=== PATIENT | male | born 1975 | race Caucasian/White ===

== ENCOUNTER 2019-10-23 19:00 | Inpatient (IN) | payer OTHER ==
[~2019-10-23] VITALS: Ht 167.6 cm; Wt 124.7 kg
[2019-10-23 20:03] LABS: BASOPHILS 0.2 % (0-2); EOSINOPHILS 0 % (0-7); HEMATOCRIT 41.5 % (42.0-54.0); HEMOGLOBIN 13.4 g/dL (13.5-17.5); IMMATURE GRANULOCYTES 0.4 % (0-5); MCH 27.7 pg (26.0-34.0); MCHC 32.3 g/dL (31.0-37.0); MCV 85.9 fL (80.0-100.0); MEAN PLATELET VOLUME 9.1 fL (7.4-10.4); MONOCYTES 4.4 % (2-11); PLATELET COUNT 173 10x3/uL (130-400); RBC 4.83 10x6/uL (4.20-6.10); RDW 14.3 % (11.5-14.5); WBC 5.5 10x3/uL (4.8-10.8)
[2019-10-23 20:18] LABS: APTT 30.6 SECONDS (22.8-39.4); INR 0.92 (0.85-1.17); PROTIME 12.4 SECONDS (11.6-15.0)
[2019-10-23 20:19] LABS: D-DIMER-QUANTITATIVE 0.6 ug/mLFEU (0.20-0.54)
[2019-10-23 20:42] LABS: ALBUMIN 3.4 g/dL (3.4-5.0); ALKALINE PHOSPHATASE 83 U/L (30-120); ALT (SGPT) 49 U/L (10-68); BILIRUBIN - TOTAL 0.45 mg/dL (0.2-1.3); CALC OSMOLALITY 266 mosm/kg (275-300); CALCIUM 8.3 mg/dL (8.5-10.1); CARBON DIOXIDE 23.9 mmol/L (21.0-32.0); CHLORIDE - SERUM 99 mmol/L (98-107); CREATINE KINASE 699 UL (21-232); CREATININE - SERUM 1.1 mg/dL (0.6-1.3); GLUCOSE 104 mg/dL (74-106); PROTEIN - SERUM 7.6 g/dL (6.4-8.2); SODIUM 134 mmol/L (136-145); UREA NITROGEN 11 mg/dL (7-18); eGFR NON AFRICAN AMERICAN 78 mL/min (90-120)
[2019-10-23 20:43] LABS: POTASSIUM - SERUM 2.9 mmol/L (3.5-5.1); TROPONIN-I 0.406 ng/mL (0.000-0.060)
[2019-10-23 20:45] LABS: CKMB 1.7 U/L (0.0-3.6)
--- NOTE | 2019-10-23 21:20 | NUR ---
RETURNED FROM CT AT THIS TIME.
[2019-10-23 21:35] VITALS: BP 141/77
[2019-10-23 21:49] LABS: C-REACTIVE PROTEIN 6.9 mg/dL (0.0-0.9)
--- NOTE | 2019-10-23 22:00 | NUR ---
PT LAYING IN BED. RESPIRATIONS ARE EVEN AND UNLABORED. NO DISTRESS NOTED. COLOR WNL FOR RACE. VSS. COVID SWAB OBTAINED AND WALKED TO LAB FOR TESTING. WILL CONTINUE TO MONITOR PATIENT.
[2019-10-23 22:01] LABS: ERYTHROCYTE SEDIMENTATION RATE 21 mm/hr (0-15)
--- NOTE | 2019-10-23 22:04 | NUR ---
rocephin 1 gram stopped at this time.
[2019-10-23 22:42] VITALS: BP 142/78
--- NOTE | 2019-10-23 23:00 | NUR ---
WAS TOLD NOT TO GIVE PLAQUENIL UNTIL INGRID GARAY SPOKE WITH ER . WAS TOLD TO USE EKG FROM [employer] FOR NOW
[2019-10-23] MEDS ORDERED: CIPRO250 MG (23:03)
[2019-10-23] MEDS ORDERED: ROBITUSSIN DM 110 ML PO (23:03)
[2019-10-23 23:50] VITALS: BP 126/82
--- NOTE | 2019-10-23 23:58 | NUR ---
RECEIVED FROM ER, PT IS A&OX4, MEDS AND HISTORY COMPLETE, PLACED OS TELEMTRY, BES IS LOW, SRX2, CALL LIGHT IN REACH, WILL CONTINUE PLAN OF CARE
[2019-10-24 00:29] LABS: CKMB 1.8 U/L (0.0-3.6); CREATINE KINASE 683 UL (21-232); TROPONIN-I 0.389 ng/mL (0.000-0.060)
[2019-10-24 01:32] VITALS: BP 126/82; BMI 44.5
--- NOTE | 2019-10-24 02:47 | NUR ---
[facility] [facility] VERIFIED DOSE, WILL GIVE NOW
[2019-10-24 04:53] LABS: BASOPHILS 0.2 % (0-2); EOSINOPHILS 0.2 % (0-7); HEMOGLOBIN 12.4 g/dL (13.5-17.5); IMMATURE GRANULOCYTES 0.7 % (0-5); LYMPHOCYTES 24.9 % (15-50); MCH 27.5 pg (26.0-34.0); MCHC 31.8 g/dL (31.0-37.0); MCV 86.5 fL (80.0-100.0); MEAN PLATELET VOLUME 9.2 fL (7.4-10.4); MONOCYTES 5.7 % (2-11); NEUTROPHILS 68.3 % (40-80); PLATELET COUNT 150 10x3/uL (130-400); RBC 4.51 10x6/uL (4.20-6.10); RDW 14.5 % (11.5-14.5)
[2019-10-24 05:39] LABS: ALBUMIN 2.8 g/dL (3.4-5.0); ALKALINE PHOSPHATASE 74 U/L (30-120); ALT (SGPT) 41 U/L (10-68); BILIRUBIN - TOTAL 0.38 mg/dL (0.2-1.3); CALC OSMOLALITY 272 mosm/kg (275-300); CALCIUM 7.5 mg/dL (8.5-10.1); CARBON DIOXIDE 24.1 mmol/L (21.0-32.0); CHLORIDE - SERUM 104 mmol/L (98-107); CKMB 1.9 U/L (0.0-3.6); CREATINE KINASE 695 UL (21-232); CREATININE - SERUM 0.9 mg/dL (0.6-1.3); GLUCOSE 95 mg/dL (74-106); POTASSIUM - SERUM 3.2 mmol/L (3.5-5.1); PROTEIN - SERUM 6.7 g/dL (6.4-8.2); SODIUM 137 mmol/L (136-145); UREA NITROGEN 9 mg/dL (7-18); eGFR NON AFRICAN AMERICAN > 90 mL/min (90-120)
[2019-10-24 05:40] LABS: TROPONIN-I 0.383 ng/mL (0.000-0.060)
--- NOTE | 2019-10-24 07:00 | NUR ---
RECEIVED REPORT. ASSUMED CARE OF PATIENT. PATIENT REMAINS IN ISOLATION FOR SUSPECTED COVID. SR ON TELEMETRY, RATE 90.
[2019-10-24 08:54] VITALS: BP 123/79
--- NOTE | 2019-10-24 09:30 | NUR ---
PATIENT RESTING IN BED. LOUD, DRY HACKY COUGH NOTED. PATIENT DENIES SPUTUM PRODUCTION. CALL LIGHT WITHIN REACH. NO DISTRESS.
[2019-10-24 11:13] LABS: CREATINE KINASE 653 UL (21-232)
[2019-10-24 11:15] LABS: TROPONIN-I 0.396 ng/mL (0.000-0.060)
--- NOTE | 2019-10-24 12:34 | NUR ---
SITTING IN BED, CONSUMING NOON MEAL. NO DISTRESS. CALL LIGHT WITHIN REACH. PATIENT GIVEN THE BAG THAT HIS BROUGHT TO THE HOSPITAL WITH PERSONAL CLOTHES. DENIES NEEDS.
--- NOTE | 2019-10-24 13:00 | NUR ---
HERE FOR ROUNDS. PATIENT DESAT TO 89% WHILE AMBULATING TO RESTROOM. DR. ELLISON INCREASE OXYGEN TO 4 L/MIN AND O2 SAT UP TO 96%
[2019-10-24 13:03] VITALS: BP 117/72
[2019-10-24 14:46] VITALS: BP 143/79
--- NOTE | 2019-10-24 15:00 | NUR ---
20 GAUGE IV PLACED TO RIGHT WRIST X 1 STICK. GOOD BLOOD RETURN, EASY FLUSH. IV PLACED DUE LEFT AC CONTINUE TO ACCLUDE WHEN PT BENDS HIS ARM. IV TAPED, DATED AND SECURED. TOLERATED IV PLACEMENT WELL. IV FLUIDS NOW INFUSING VIA RIGHT WRIST.
--- NOTE | 2019-10-24 16:37 | NUR ---
CALLED PLACED TO ANSWERING SERVICE TO LYNN TORRES. CONCERNED THAT HE WAS NOT SEEN BY PRIMARY TODAY AND CALLED THE UNIT TO MAKE SURE THAT PRIMARY KNOWS THAT THIS PATIENT IS ON THEIR SERVICE. AWAITING CALL BACK FROM NOW TO MAKE SURE HE KNOWS PATIENT IS ON HIS SERVICE.
--- NOTE | 2019-10-24 17:07 | NUR ---
ASSISTED PATIENT TO RESTROOM AND BACK. PATIENT CONTINUES WITH DRY, HACKING COUGH. CALL LIGHT WITHIN REACH. PATIENT ATTEMPTING TO CONSUME PM MEAL AT THIS TIME.
--- NOTE | 2019-10-24 18:11 | NUR ---
MEDICATED FOR TEMP OF 100.5 AT THIS TIME. NO DISTRESS. IV FLUIDS INFUSING ORDERED.
[2019-10-24 20:06] VITALS: BP 149/72
--- NOTE | 2019-10-24 20:43 | NUR ---
RECEIVED UP IN BED WITH EYES CLOSED AND TV ON. EASILY AROUSED WITH VERBAL STIMULI. STATING NOT FEELING GOOD AND THAT HE FELT HOT. V/S'S CHECKED AND TEMP. AT 100.0. COOL WET CLOTHES GIVEN FOR FORHEAD AND NECK. ASKED HIM TO DRINK WATER FOR HIS TEMP. UNABLE TO GIVE ACETAMENOPHINE D/T GIVEN AT 1810. HAS A DRY HACKING COUGH AND SATES THAT SOMETIMES HE COUGHS UP A LITTLE SOMETHING. O2 @ 4 LITERS PER N/C WITH SAT IN LOW 90'S. ORIENTED X4. UP AD RADHA TO B/R. TELEMETRY IN PLACE. IV TO LT AC SL AND IV TO RT FA WITH NS AT 100CC/HR. DENIES ANY OTHER NEEDS AT THIS TIME.
--- NOTE | 2019-10-25 02:00 | NUR ---
HAS A HACKING DRY COUGH. PRN PHENAGREN/CODEINE GIVEN WITH GOOD RESULTS.
[2019-10-25 04:13] VITALS: BP 118/47
[2019-10-25 05:08] LABS: BASOPHILS 0 % (0-2); EOSINOPHILS 0.3 % (0-7); HEMATOCRIT 37.9 % (42.0-54.0); HEMOGLOBIN 11.9 g/dL (13.5-17.5); IMMATURE GRANULOCYTES 0.5 % (0-5); LYMPHOCYTES 12.2 % (15-50); MCH 27.2 pg (26.0-34.0); MCHC 31.4 g/dL (31.0-37.0); MCV 86.5 fL (80.0-100.0); MONOCYTES 3.7 % (2-11); NEUTROPHILS 83.3 % (40-80); PLATELET COUNT 165 10x3/uL (130-400); RBC 4.38 10x6/uL (4.20-6.10); RDW 14.7 % (11.5-14.5)
[2019-10-25 05:19] LABS: WBC 5.7 10x3/uL (4.8-10.8)
[2019-10-25 05:37] LABS: ALBUMIN 2.5 g/dL (3.4-5.0); ALKALINE PHOSPHATASE 70 U/L (30-120); ALT (SGPT) 35 U/L (10-68); BILIRUBIN - TOTAL 0.29 mg/dL (0.2-1.3); CALC OSMOLALITY 269 mosm/kg (275-300); CALCIUM 7.5 mg/dL (8.5-10.1); CARBON DIOXIDE 21.4 mmol/L (21.0-32.0); CHLORIDE - SERUM 103 mmol/L (98-107); CREATININE - SERUM 0.9 mg/dL (0.6-1.3); GLUCOSE 108 mg/dL (74-106); MAGNESIUM - SERUM 1.8 mg/dL (1.8-2.4); PHOSPHOROUS 2.1 mg/dL (2.5-4.9); POTASSIUM - SERUM 3.1 mmol/L (3.5-5.1); PROTEIN - SERUM 6.4 g/dL (6.4-8.2); SODIUM 136 mmol/L (136-145); eGFR NON AFRICAN AMERICAN > 90 mL/min (90-120)
[2019-10-25 05:42] LABS: UREA NITROGEN 5 mg/dL (7-18)
--- NOTE | 2019-10-25 07:52 | HP ---
PATIENT: DANY REYNOLDS MEDICAL RECORD: [id number] ACCOUNT: [id number] LOCATION:[address] : [birth year] ADMISSION DATE: 10/23/19 PCP: ISH TURNER MD HISTORY AND PHYSICAL EXAMINATION DATE OF ADMISSION: 10/23/2019. The date I saw him for this history and physical was on 10/24/2019. HISTORY OF PRESENT ILLNESS: This 44-year-old white male presented to the ER with fever, fatigue, worsening cough and shortness of breath over the last couple of days. His temperature was up to 102 on 10/23/2019. I had just talked to him on 10/21/2019 with a phone call visit. He called saying that he had a chronic cough for almost 2 months, some sinus congestion, and history of allergies. He did not have any fever or chills at that time and he was prescribed benzonatate p.r.n. cough and told him to go to the ER if symptoms got worse. His symptoms definitely got worse and he presented to the ER, his temperature did get up to 100.2 in the ER last night. His O2 sat has only been as low as 94% according to the records that I can see. The patient has had worsening shortness of breath, dyspnea on activity. He denies any swelling in his legs. He reports some loss of taste and smell, no chest pain except for the coughing. He has had no recent travel or no known contact with anybody with travel to epidemic areas. He has no known exposure to anybody except his who has had some symptoms of upper respiratory infection (I talked to her on 10/20/2019 and had prescribed her a Z-JAG then). In the ER, his potassium was a little low at 2.9, creatinine kinase was elevated at 699, troponin a little elevated at 0.406, D-dimer little elevated at 0.6. CBC showed a white count of 5500. He was negative for Influenza A and B and RSV as well as strep throat all via the rapid testing. Chest x-ray was done that showed patchy opacities in the right lung base concerning for pneumonia. CTA of the chest was done with the elevated D-dimer and it showed no evidence of a large PE, but there were bilateral ground glass opacities in the lung that are suspicious for a viral infection. The patient is admitted for suspicion of Covid 19 and pneumonia. He is also going be evaluated for the elevated troponin. PAST MEDICAL HISTORY: Again, a few seasonal allergies. PAST SURGICAL HISTORY: Hernia repair as an , deviated septum as a teenager. HOME MEDICATIONS: He took ibuprofen as needed. He would take xutp-gpa-viwiylv antihistamines as needed and he was prescribed benzonatate 200 mg t.i.d. p.r.n. cough on 10/21/2019. ALLERGIES: None known. HABITS: Never smoked. No alcohol or drug use. SOCIAL HISTORY: He is . He has been working at home for the last week or 2. FAMILY HISTORY: Father is alive. He has diabetes and hypertension. Mother is HISTORY AND PHYSICAL [id number] DANY REYNOLDS alive. She has epilepsy. REVIEW OF SYSTEMS: GENERAL: No major weight changes up or down. HEENT: He does have some seasonal allergies. RESPIRATORY: No history of asthma, emphysema, no history of pneumonia in the past. CARDIAC: No history of coronary artery disease. No chest pain. He has never been evaluated as far as cardiac problems are concerned. GASTROINTESTINAL: Denies diarrhea, constipation, or heartburn. GENITOURINARY: No significant problems there. MUSCULOSKELETAL: No significant joint aches and pains. NEUROLOGIC: No migraines or seizures. PSYCHIATRIC: Denies depression or melancholia. PHYSICAL EXAMINATION: VITAL SIGNS: Today, temperature 99.0, pulse 94, respirations 20, blood pressure 123/79, O2 sat was 94%. He was on 2 liters of oxygen via nasal cannula. HEENT: Grossly within normal limits. NECK: Supple. HEART: Regular rate and rhythm. LUNGS: Fairly clear, maybe a few crackles in the bases bilaterally. ABDOMEN: Obese, soft, nontender. EXTREMITIES: No edema. NEUROLOGIC: No focal motor or sensory deficits noted. LABS: ABG showed a pH of 7.465, pCO2 of 27.6, pO2 of 83, O2 sat 97% on 2 liters. CBC showed a white count of 5500, hemoglobin 13.4, hematocrit 41.5 with a normal differential. Basic metabolic panel was all okay except potassium a little low at 2.9. Liver enzymes: AST was a little elevated at 58. Other liver functions were normal. INR 0.92. D-dimer 0.60. CK 699 and rechecked to be 683. CK-MB 1.7. Troponin initially was 0.406 and this has gone down to 0.383. Influenza A and B rapid test is negative. RSV rapid test is negative. Group B strep rapid test is negative. Covid is pending. Chest x-ray: Patchy opacities in right lung base concerning for pneumonia. CTA of the chest shows no obvious large PE. There are bilateral ground-glass opacities suspicious for a viral infection. ASSESSMENT: Pneumonia, community-acquired versus Covid 19. PLAN: The patient has been admitted, started on Rocephin and started on hydroxychloroquine, started on azithromycin. He is given oxygen and he had an EKG done in the ER that did not show a prolonged QT interval. Cardiology has been consulted and has seen the patient as well. Echocardiogram has been ordered. Further tests as needed. I spoke with the patient initially and told him he is definitely being treated as if he has Covid 19 and that his and daughter who live at home with him need to be quarantined for 14 days. The patient states that his reghvo-cs-ooc also spent the night, "the other night" and she too will need to be quarantined. The ilbzns-lk-tky, the patient's and the patient's daughter, all needs to be checked for Covid 19 if he turns out to be positive. Other tests or procedures as warranted. TRANSINT:[id number] Voice Confirmation ID: [id number] DOCUMENT ID: [id number] HISTORY AND PHYSICAL [id number] DANY REYNOLDS WILLIAM MD at 0752 CC: [id number] DICTATION DATE: 10/24/191904 VEGETABLE LOADER MACHINE OPERATOR: 10/24/192207 ADM IN [facility] [address] [place] [address]
[2019-10-25 08:16] VITALS: BP 100/62
--- NOTE | 2019-10-25 08:24 | NUR ---
AM MEDS GIVEN AT THIS TIME. VITAL SIGNS STABLE. PT A/O X4, RESP EVEN AND NONLABORED ON 4L. RT FA IV INFUSING NS AT 100CC/HR. LT AC IV SL. PT DENIES ANY NEEDS AT THIS TIME. CALL LIGHT IN REACH, NAD NOTED,WILL CONTINUE TO MONITOR.
--- NOTE | 2019-10-25 08:41 | NUR ---
AM MEDS GIVEN AT THIS TIME. PT A/O X4, RESP EVEN AND NONLABORED ON RA. RT FA INFUSING NS AT 100. AND DILAUDID PRODUCTION SERVICE MANAGER. GUERRA DRAINING YELLOW URINE TO GRAVITY. PT DENIES ANY NEEDS AT THIS TIME. CALL LIGHT IN REACH, NAD NOTED, WILL CONTINUE TO MONITOR.
[2019-10-25 11:55] VITALS: BP 110/56
--- NOTE | 2019-10-25 12:00 | NUR ---
OFFERED PT A SHOWER AND PT STATED HE IS EXHAUSTED AT THIS TIME. HE MAY WANT ONE LATER TONIGHT.
[2019-10-25 12:33] VITALS: Ht 167.6 cm; Wt 124.7 kg
[2019-10-25 15:35] VITALS: BP 125/86
--- NOTE | 2019-10-25 15:36 | NUR ---
650MG OF TYLENOL GIVEN FOR FEVER OF 100.8. PT JUST GOT BACK IN BED FROM USING THE RESTROOOM. PT IS SOB, ENCOURAGED HIM TO TAKE SLOW DEEP BREATHS AND PT WAS ALBE TO CONTROL HIS BREATHING. PT DENIES ANY OTHER NEEDS AT THIS TIME. CALL LIGHT IN REACH,NAD NOTED,W ILL CONTINUE TO MONITOR.
--- NOTE | 2019-10-25 16:52 | MORECARE ---
CASE MANAGEMENT DISCHARGE SUMMARY PATIENT: DANY REYNOLDS UNIT: [id number] ADM DATE: 10/23/19 AGE: 44 : [birth year] SEX: M ROOM/BED: D.2130 AUTHOR: GARRET TONEY PHYSICIAN: REFERRING PHYSICIAN: ISH TURNER MD DATE OF SERVICE: 10/25/19 Discharge Plan Patient Name: DANY REYNOLDS [facility] [facility] 1975 Planned Disposition: Home Anticipated Discharge Date: Discharge Date: Expected LOS: Initial Reviewer: [email or web address] Initial Review Date: 10/25/2019 Generated: 10/25/19 5:51 pm Patient Name: DANY REYNOLDS Page [phone] at 1652 All edits/amendments must be made on the electronic document DICTATION DATE: 10/25/191650 ENVIRONMENTAL SAMPLING TECHNICIAN: SOPHIE 10/25/191650 RPT#: [id number] DC DATE: STATUS: ADM IN [facility] [address] [place] [address] END OF REPORT
--- NOTE | 2019-10-25 16:58 | MORECARE ---
CASE MANAGEMENT DISCHARGE SUMMARY PATIENT: DANY REYNOLDS UNIT: [id number] ADM DATE: 10/23/19 AGE: 44 : 79 SEX: M ROOM/BED: D.2130 AUTHOR: FENG,DOC PHYSICIAN: REFERRING PHYSICIAN: ISH TURNER MD DATE OF SERVICE: 10/25/19 Discharge Plan Patient Name: DANY REYNOLDS Facility: [facility]:[place] : 1975 Planned Disposition: Home Anticipated Discharge Date: Discharge Date: Expected LOS: Initial Reviewer: [email or web address] Initial Review Date: 10/25/2019 Generated: 10/25/19 5:58 pm Comments DCP- Discharge Planning Updated by [email or web address]: Mykel Gabriel on 10/25/19 3:[address] Patient Name: DANY REYNOLDS Admission Status: ER Accout number: [id number] Admission Date: 10-23-2019 : 1975 Admission Diagnosis:PNEUMONIA, UNSPECIFIED ORGANISM Attending: ISH TURNER Current LOS: 2 Anticipated DC Date: Planned Disposition: Home Primary Insurance: CIG[employer] PPO Discharge Planning Comments: CM SPOKE TO PT VIA ROOM PHONE DUE TO CURRENT INFECTION CONTROL PROTOCOL, TO DISCUSS DISCHARGE PLANNING AND NEEDS. PT REPORTS LIVING AT HOME INDEPENDENTLY WITH HIS . PT HAS NO MEDICAL EQUIPMENT AND NO OUTSIDE SERVICES ASSISTING IN THE HOME. CM DISCUSSED AVAILABILITY OF HOME HEALTH, REHAB SERVICES AND MEDICAL EQUIPMENT. PT DENIES DISCHARGE NEEDS, REPORTS HIS WILL PICK HIM UP FOR DISCHARGE HOME. PT PLANS TO DISCHARGE HOME WITH SPOUSE, HAS NO ANTICIPATED NEEDS AND REPORTS HIS WILL PICK HIM UP FOR DISCHARGE HOME. CM TO FOLLOW AND ASSIST IF NEEDED. Assistant Store Director: Mykel Gabriel DCPIA - Discharge Planning Initial Assessment Updated by [email or web address]: Mykel Gabriel on 10/25/19 4:51 pm * Is the patient Alert and Oriented? Yes * How many steps to enter\exit or inside your home? NONE * PCP DR. TURNER * Pharmacy [facility] [address] * Preadmission Environment Home with Family * ADLs Independent * Equipment None * Other Equipment NO MEDICAL EQUIPMENT PROVIDER PREFERENCE * List name and contact numbers for known caregivers / representatives who currently or will assist patient after discharge: CK REYNOLDS, SPOUSE, * Verbal permission to speak to the caregivers and representatives has been obtained from the patient. N/A * Community resources currently utilized None * Please name any agencies selected above. NONE * Additional services required to return to the preadmission environment? No * Can the patient safely return to the preadmission environment? Yes * Has this patient been hospitalized within the prior 30 days at any hospital? No Last DP export: 10/25/19 3:52 pm Patient Name: DANY REYNOLDS Page [phone] at 1658 All edits/amendments must be made on the electronic document DICTATION DATE: 10/25/191657 TRANSPLANT CASE MANAGER: SOPHIE 10/25/191657 RPT#: [id number] DC DATE: STATUS: ADM IN [facility] [address] [place] [address] END OF REPORT
[2019-10-25 20:02] VITALS: BP 121/70
[2019-10-26] VITALS (7 sets, daily range): BP systolic 111–143; BP diastolic 57–76
[2019-10-26 05:22] LABS: BASOPHILS 0.3 % (0-2); EOSINOPHILS 0.6 % (0-7); HEMATOCRIT 37.4 % (42.0-54.0); HEMOGLOBIN 12.1 g/dL (13.5-17.5); IMMATURE GRANULOCYTES 0.5 % (0-5); LYMPHOCYTES 8.4 % (15-50); MCH 27.8 pg (26.0-34.0); MCHC 32.4 g/dL (31.0-37.0); MCV 85.8 fL (80.0-100.0); MEAN PLATELET VOLUME 9.5 fL (7.4-10.4); NEUTROPHILS 86.2 % (40-80); RBC 4.36 10x6/uL (4.20-6.10); RDW 14.7 % (11.5-14.5)
[2019-10-26 05:27] LABS: PLATELET COUNT 205 10x3/uL (130-400); WBC 7.7 10x3/uL (4.8-10.8)
[2019-10-26 05:41] LABS: CALC OSMOLALITY 276 mosm/kg (275-300); CARBON DIOXIDE 24.2 mmol/L (21.0-32.0); CHLORIDE - SERUM 105 mmol/L (98-107); GLUCOSE 110 mg/dL (74-106); POTASSIUM - SERUM 3.3 mmol/L (3.5-5.1); SODIUM 140 mmol/L (136-145); eGFR NON AFRICAN AMERICAN 87 mL/min (90-120)
[2019-10-26 05:47] LABS: UREA NITROGEN 3 mg/dL (7-18)
--- NOTE | 2019-10-26 14:07 | NUR ---
I have reviewed this patient and I concur with the Shift Assessment completed by the Licensed Practical Nurse today this shift.
--- NOTE | 2019-10-26 19:30 | NUR ---
PT IN BED, AAO X 3, RESP EVEN AND UNLABORED. NO DISTRESS NOTED, CL IN REACH, SR UP X 2.
[2019-10-27 04:06] VITALS: BP 130/85
[2019-10-27 04:51] LABS: BASOPHILS 0.1 % (0-2); EOSINOPHILS 1.4 % (0-7); HEMATOCRIT 36.6 % (42.0-54.0); HEMOGLOBIN 11.9 g/dL (13.5-17.5); IMMATURE GRANULOCYTES 0.7 % (0-5); LYMPHOCYTES 8.3 % (15-50); MCH 27.6 pg (26.0-34.0); MCHC 32.5 g/dL (31.0-37.0); MCV 84.9 fL (80.0-100.0); MEAN PLATELET VOLUME 9.4 fL (7.4-10.4); MONOCYTES 4.6 % (2-11); NEUTROPHILS 84.9 % (40-80); PLATELET COUNT 194 10x3/uL (130-400); RBC 4.31 10x6/uL (4.20-6.10); RDW 14.5 % (11.5-14.5); WBC 7.4 10x3/uL (4.8-10.8)
[2019-10-27 04:56] LABS: CALC OSMOLALITY 272 mosm/kg (275-300); CALCIUM 7.9 mg/dL (8.5-10.1); CARBON DIOXIDE 25.1 mmol/L (21.0-32.0); CHLORIDE - SERUM 104 mmol/L (98-107); CREATININE - SERUM 0.8 mg/dL (0.6-1.3); GLUCOSE 130 mg/dL (74-106); SODIUM 137 mmol/L (136-145); eGFR NON AFRICAN AMERICAN > 90 mL/min (90-120)
[2019-10-27 05:23] LABS: UREA NITROGEN 5 mg/dL (7-18)
--- NOTE | 2019-10-27 07:10 | NUR ---
REPORT RECEIVED FROM ASSISTANT GM OF CONTENT & DELIVERY AND PATIENT CARE ASSUMED. PATIENT LAYING IN BED ON BACK AWAKE, ALERT AND ORIENTED X 4. PATIENT DENIES ANY NEEDS OR PAIN. WILL CONTINUE WITH PLAN OF CARE. SR UP X 2 BED IN LOW POSITION AND CALL LIGHT IN REACH.
[2019-10-27 15:22] VITALS: BP 152/72
[2019-10-27 20:37] VITALS: BP 152/73
[2019-10-28 05:32] LABS: BASOPHILS 0.2 % (0-2); HEMATOCRIT 36.1 % (42.0-54.0); HEMOGLOBIN 11.6 g/dL (13.5-17.5); IMMATURE GRANULOCYTES 0.5 % (0-5); LYMPHOCYTES 11.4 % (15-50); MCH 27.2 pg (26.0-34.0); MCHC 32.1 g/dL (31.0-37.0); MCV 84.7 fL (80.0-100.0); MEAN PLATELET VOLUME 8.8 fL (7.4-10.4); MONOCYTES 4.7 % (2-11); NEUTROPHILS 81.2 % (40-80); RBC 4.26 10x6/uL (4.20-6.10); RDW 14.5 % (11.5-14.5)
[2019-10-28 05:44] LABS: PLATELET COUNT 238 10x3/uL (130-400)
[2019-10-28 05:48] LABS: CALC OSMOLALITY 275 mosm/kg (275-300); CALCIUM 8.1 mg/dL (8.5-10.1); CHLORIDE - SERUM 103 mmol/L (98-107); CREATININE - SERUM 0.9 mg/dL (0.6-1.3); GLUCOSE 111 mg/dL (74-106); SODIUM 139 mmol/L (136-145); UREA NITROGEN 4 mg/dL (7-18); eGFR NON AFRICAN AMERICAN > 90 mL/min (90-120)
[2019-10-28 05:50] LABS: POTASSIUM - SERUM 2.8 mmol/L (3.5-5.1)
[2019-10-28 10:57] VITALS: BP 135/83
--- NOTE | 2019-10-28 13:34 | NUR ---
Nutrition Follow-up: Pt remains in droplet precautions; covid-19 positive. Chart reviewed. Noted pt ate 50% of breakfast and lunch yesterday. Diet: Regular No new wt; last wt: 275# (10/24) Last recorded BM: 10/26 Labs noted: K+ 2.8, Glu 111, Ca 8.1 Meds noted: KDur, Protonix, Pepcid, Phenergan, NS @ 100 -Encourage PO intake and honor food preferences. -Offer nutrition supplements. -RD following.
--- NOTE | 2019-10-28 18:08 | NUR ---
I have reviewed this patient and I concur with the Shift Assessment completed by the Licensed Practical Nurse today this shift.
[2019-10-28 19:58] VITALS: BP 136/92
[2019-10-29 04:30] LABS: BASOPHILS 0.2 % (0-2); EOSINOPHILS 1.8 % (0-7); HEMATOCRIT 35.6 % (42.0-54.0); HEMOGLOBIN 11.6 g/dL (13.5-17.5); IMMATURE GRANULOCYTES 0.9 % (0-5); MCH 27.6 pg (26.0-34.0); MCHC 32.6 g/dL (31.0-37.0); MCV 84.8 fL (80.0-100.0); MEAN PLATELET VOLUME 8.9 fL (7.4-10.4); MONOCYTES 4.7 % (2-11); NEUTROPHILS 78.4 % (40-80); PLATELET COUNT 270 10x3/uL (130-400); RDW 14.3 % (11.5-14.5); WBC 5.5 10x3/uL (4.8-10.8)
[2019-10-29 05:02] LABS: CALC OSMOLALITY 275 mosm/kg (275-300); CALCIUM 8.3 mg/dL (8.5-10.1); CARBON DIOXIDE 24.2 mmol/L (21.0-32.0); CHLORIDE - SERUM 104 mmol/L (98-107); CREATININE - SERUM 0.8 mg/dL (0.6-1.3); GLUCOSE 106 mg/dL (74-106); POTASSIUM - SERUM 3.1 mmol/L (3.5-5.1); SODIUM 139 mmol/L (136-145); eGFR NON AFRICAN AMERICAN > 90 mL/min (90-120)
[2019-10-29 05:05] LABS: UREA NITROGEN 6 mg/dL (7-18)
--- NOTE | 2019-10-29 08:00 | NUR ---
PT RECEIVED AWAKE AND ALERT LYING IN BED. PULSE OX 94% ON 5 LITERS. HUMIDIFICATION ADDED FOR DRY MEMBRANES. COUGH MED GIVEN. DR TURNER IN ROOM.
[2019-10-29 08:29] VITALS: BP 144/77
[2019-10-29 12:05] VITALS: BP 148/88
[2019-10-29 22:20] VITALS: BP 151/67
[2019-10-30 06:09] VITALS: BP 138/79
[2019-10-30 06:33] LABS: BASOPHILS 0.2 % (0-2); EOSINOPHILS 2.5 % (0-7); HEMATOCRIT 36.6 % (42.0-54.0); HEMOGLOBIN 11.8 g/dL (13.5-17.5); IMMATURE GRANULOCYTES 1.2 % (0-5); LYMPHOCYTES 12.4 % (15-50); MCH 27.3 pg (26.0-34.0); MCHC 32.2 g/dL (31.0-37.0); MCV 84.7 fL (80.0-100.0); MEAN PLATELET VOLUME 8.7 fL (7.4-10.4); MONOCYTES 5.2 % (2-11); NEUTROPHILS 78.5 % (40-80); PLATELET COUNT 256 10x3/uL (130-400); RBC 4.32 10x6/uL (4.20-6.10); RDW 14.1 % (11.5-14.5); WBC 5.9 10x3/uL (4.8-10.8)
[2019-10-30 06:45] LABS: CALC OSMOLALITY 275 mosm/kg (275-300); CARBON DIOXIDE 25.9 mmol/L (21.0-32.0); CHLORIDE - SERUM 102 mmol/L (98-107); CREATININE - SERUM 0.9 mg/dL (0.6-1.3); GLUCOSE 105 mg/dL (74-106); POTASSIUM - SERUM 3.1 mmol/L (3.5-5.1); SODIUM 139 mmol/L (136-145); UREA NITROGEN 6 mg/dL (7-18); eGFR NON AFRICAN AMERICAN > 90 mL/min (90-120)
--- NOTE | 2019-10-30 07:00 | NUR ---
RECEIVED REPORT. ASSUMED CARE OF PATIENT. PATIENT REMAINS IN DROPLET ISOLATION FOR POSITIVE COVID-19. SR ON TELEMETRY, RATE 98.
[2019-10-30 07:30] VITALS: BP 137/65
[2019-10-30 12:00] VITALS: BP 119/81
--- NOTE | 2019-10-30 15:00 | NUR ---
TELEHEALTH CALL COMPLETED WITH AT THIS TIME. NO NEW ORDERS RECEIVED. PATIENT SITTING IN BED WITH ATTENTION TOWARD TELEVISION. NO DISTRESS.
[2019-10-30 15:06] VITALS: BP 141/79
--- NOTE | 2019-10-30 16:12 | NUR ---
FRANKLIN COCHRAN WITH [facility] CALLED TO CHECK ON PATIENT FOR COVID-19+. UPDATE PROVIDED.
--- NOTE | 2019-10-30 17:09 | NUR ---
DIET MESSAGE PLACED FOR PATIENT - HAM AND CHEESE SANDWICH AND REG POTATOE CHIPS. PATIENT DOES NOT LIKE SANDWICH AND STATES NOBODY CALLED TO TAKE HIS ORDER OR PROVIDE HIM WITH A MENU.
--- NOTE | 2019-10-30 19:37 | NUR ---
RECEIVED UP IN BED WITH EYES OPEN AND TV ON. ALERT AND ORIETNED X4. UP AD RADHA. O2@ 3 LITERS PER N/C.RSP EVEN AND UNLABORED. LUNG SOUNDS DIMINISHED. IV TO LT WRIST SL. TELEMETRY IN PLACE. DENIES ANY NEEDS AT THIS TIME.
[2019-10-30 21:01] VITALS: BP 151/85
[2019-10-31 01:42] VITALS: BP 147/86
[2019-10-31 05:50] VITALS: BP 125/70; BP 189/101
--- NOTE | 2019-10-31 07:00 | NUR ---
RECEIVED REPORT. ASSUMED CARE OF PATIENT. PATIENT REMAINS IN ISOLATION FOR COVID-19. SR ON TELEMETRY, RATE OF 98.
[2019-10-31 08:24] VITALS: BP 121/76
--- NOTE | 2019-10-31 10:23 | NUR ---
PATIENT RESTING IN BED. CALL LIGHT WITHIN REACH. PATIENT DENIES NEEDS. ENCOURAGED CONTINUED USE OF INCENTIVE SPIROMETER. DISCUSSED IV PLACEMENT WITH PATIENT. NO DISTRESS.
--- NOTE | 2019-10-31 12:10 | NUR ---
20 GAUGE IV PLACED TO LEFT FOREARM X 1 STICK. GOOD BLOOD RETURN, EASY FLUSH. TOLERATED IV WELL. TAPED, DATED AND SECURED. PATIENT NOW CONSUMING NOON MEAL. CONTINUES WITH DRY HACKY COUGH, NON PRODUCTIVE.
[2019-10-31 12:14] VITALS: BP 137/80
--- NOTE | 2019-10-31 15:12 | NUR ---
ASSISTED PATIENT OOB TO SHOWER. COMPLETE LINEN CHANGE AT THIS TIME. TELEMETRY REMOVED AND MONITOR NOTIFIED FOR SHOWER.
[2019-10-31 15:43] VITALS: BP 142/83
--- NOTE | 2019-10-31 16:42 | NUR ---
TELEMETRY REAPPLIED AT THIS TIME. PATIENT SITTING IN BED CONSUMING PM MEAL. NO DISTRESS.
--- NOTE | 2019-10-31 20:17 | NUR ---
RECEIVED UP IN BED WITH EYES OPEN AND TV ON. STILL HAS DRY COUGH AT TIME. O2@ 3 LITERS WITH SAT 99-100%. TURNED DOWN TO 2 LITERS. IV TO LT FA WITH ROCEPHIN INFUSING AT THIS TIME. TELEMETRY IN PLACE. DENIES ANY NEEDS AT THIS TIME.
[2019-10-31 20:18] VITALS: BP 121/69
--- NOTE | 2019-10-31 22:24 | NUR ---
SSAT 97% ON 2 LITERS OF O2 NC
[2019-11-01 06:07] VITALS: BP 117/67
[2019-11-01 08:16] VITALS: BP 109/74
--- NOTE | 2019-11-01 08:22 | NUR ---
AM MEDS GIVEN AT THIS TIME. PT A/O X4, RESP EVEN AND NONLABORED ON RA. DRY HACKING COUGH NOTED. LT FA IV SL. VITAL SIGNS STABLE, PT DENIES ANY NEEDS AT THIS TIME. CALL LIGHT IN REACH,NAD NOTED,W ILL CONTINUE TO MONITOR.
[2019-11-01 11:53] VITALS: BP 109/75
[2019-11-01 15:09] VITALS: BP 123/93
[2019-11-01 20:25] VITALS: BP 124/73
[2019-11-02 05:42] VITALS: BP 145/87
[2019-11-02 08:20] VITALS: BP 126/72
--- NOTE | 2019-11-02 08:24 | NUR ---
AM MEDS GIVEN AT THIS TIME. PT A/O X4, RESP EVEN AND NONLABORED ON RA. LT FA IV SL. PT DENIES ANY NEEDS AT THIS TIME. CALL LIGHT IN REACH, NAD NOTED, WILL CONTINUE TO MONITOR.
[2019-11-02] MEDS ORDERED: KENALOG 0.1 % 115 GM TOPICAL (08:54)
--- NOTE | 2019-11-02 10:18 | MORECARE ---
CASE MANAGEMENT DISCHARGE SUMMARY PATIENT: DANY REYNOLDS UNIT: [id number] ADM DATE: 10/23/19 AGE: 44 : [birth year] SEX: M ROOM/BED: D.2130 AUTHOR: GARRET TONEY PHYSICIAN: REFERRING PHYSICIAN: ISH TURNER MD DATE OF SERVICE: 11/02/19 Discharge Plan Patient Name: DANY REYNOLDS Facility: [facility]:[place] : 1975 Planned Disposition: Home Anticipated Discharge Date: Discharge Date: Expected LOS: Initial Reviewer: [email or web address] Initial Review Date: 10/25/2019 Generated: 11/02/19 11:17 am Comments DCP- Discharge Planning Updated by [email or web address]: Criselda Rodrigues on 11/02/19 9:[address] RA sat 96%, O2 sat w/exertion 91%. Walking test performed per RT. CM called patient regarding DC needs/plans. Patient states he is independent with his care and uses no DME. Lives with his , Ck Reynolds [phone] [address] will drive him home and pickle water pump operator any meds. PCP: Dr. Turner. Pharmacy [facility]. Patient denies the need for HHS, Rehab, SNF. Encouraged patient to follow up with his MD appointment and testing as suggested by MD. Voices no needs at this time. DCP- Discharge Planning Updated by [email or web address]: Mykel Gabriel on 10/25/19 3:[address] Patient Name: DANY REYNOLDS Admission Status: ER Accout number: [id number] Admission Date: 10-23-2019 : 1975 Admission Diagnosis:PNEUMONIA, UNSPECIFIED ORGANISM Attending: IHS TURNER Current LOS: 2 Anticipated DC Date: Planned Disposition: Home Primary Insurance: CIGNA PPO Discharge Planning Comments: CM SPOKE TO PT VIA ROOM PHONE DUE TO CURRENT INFECTION CONTROL PROTOCOL, TO DISCUSS DISCHARGE PLANNING AND NEEDS. PT REPORTS LIVING AT HOME INDEPENDENTLY WITH HIS . PT HAS NO MEDICAL EQUIPMENT AND NO OUTSIDE SERVICES ASSISTING IN THE HOME. CM DISCUSSED AVAILABILITY OF HOME HEALTH, REHAB SERVICES AND MEDICAL EQUIPMENT. PT DENIES DISCHARGE NEEDS, REPORTS HIS WILL PICK HIM UP FOR DISCHARGE HOME. PT PLANS TO DISCHARGE HOME WITH SPOUSE, HAS NO ANTICIPATED NEEDS AND REPORTS HIS WILL PICK HIM UP FOR DISCHARGE HOME. CM TO FOLLOW AND ASSIST IF NEEDED. Auto Fleet Manager: Mykel Gabriel DCPIA - Discharge Planning Initial Assessment Updated by [id number]: Mykel Gabriel on 10/25/19 4:51 pm * Is the patient Alert and Oriented? Yes * How many steps to enter\exit or inside your home? NONE * PCP DR. TURNER * Pharmacy [facility] [address] * Preadmission Environment Home with Family * ADLs Independent * Equipment None * Other Equipment NO MEDICAL EQUIPMENT PROVIDER PREFERENCE * List name and contact numbers for known caregivers / representatives who currently or will assist patient after discharge: CK REYNOLDS, SPOUSE, * Verbal permission to speak to the caregivers and representatives has been obtained from the patient. N/A * Community resources currently utilized None * Please name any agencies selected above. NONE * Additional services required to return to the preadmission environment? No * Can the patient safely return to the preadmission environment? Yes * Has this patient been hospitalized within the prior 30 days at any hospital? No Last DP export: 10/25/19 3:58 pm Patient Name: DANY REYNOLDS Page 44801 at 1018 All edits/amendments must be made on the electronic document DICTATION DATE: 11/02/19 1017 COMMERCIAL LOAN PROCESSOR: SOPHIE 11/02/19 1017 RPT#: [id number] DC DATE: STATUS: ADM IN [facility] [address] [place] [address] END OF REPORT
--- NOTE | 2019-11-02 10:22 | NUR ---
PROVIDED VERBAL AND WRITTEN DISCHARGE TEACHING TO PT, WHO VERBALIZED UNDERSTANDING REGARDING TEACHING. D/C LT FA IV WITH CATHETER TIP INTACT. HEART MONITOR REMOVED AND TAKEN TO DENTAL MANAGER. PT LEFT UNIT VIA WHEELCHAIR, WITH ALL BELONGINGS.
--- NOTE | 2019-11-02 13:41 | NUR ---
DR ELLISON CAME BY TO HAVE PATIENT GET FU APPT WITH CXR. I CALLED THE PATIENT AND GAVE HER THE INFORMATION FOR APPT 01/18/20 AT 11:45 WITH CXR PRIOR TO APPT.
== END 2019-11-02 10:48 | disposition home or self-care (01) | DRG 177 ==
LOC: D.ER 19:00 → D.M2 22:11
PROVIDERS: Family Medicine; Internal Medicine Pulmonary Disease; ADMIT Family Medicine; ATTEND Family Medicine
DX: U07.1 COVID-19 (principal); J18.9 Pneumonia, unspecified organism; J96.01 Acute respiratory failure with hypoxia; Z68.41 Body mass index [BMI] 40.0-44.9, adult; E66.9 Obesity, unspecified; G47.33 Obstructive sleep apnea (adult) (pediatric); D64.9 Anemia, unspecified; E87.6 Hypokalemia; B97.29 Other coronavirus as the cause of diseases classified elsewhere; R19.7 Diarrhea, unspecified

== ENCOUNTER → 2020-01-20 12:41 | Outpatient (CLI) | payer OTHER ==
[2019-10-25 12:33] VITALS: BMI 44.4
[~2020-01-20 12:41] MED LIST: CIPRO250 MG; KENALOG 0.1 % 115 GM TOPICAL; ROBITUSSIN DM 110 ML PO
== END | disposition home or self-care (01) ==
LOC: D.RAD 12:41
PROVIDERS: ATTEND Internal Medicine Pulmonary Disease
DX: R06.00 Dyspnea, unspecified (principal); I49.9 Cardiac arrhythmia, unspecified

== ENCOUNTER → 2020-01-28 08:55 | Outpatient (CLI) | payer OTHER ==
[2019-10-25 12:33] VITALS: BMI 44.4
== END ==
LOC: D.LAB 08:17
PROVIDERS: ATTEND Internal Medicine Pulmonary Disease
DX: Z11.59 Encounter for screening for other viral diseases (principal)

== ENCOUNTER → 2020-01-31 08:59 | Outpatient (CLI) | payer OTHER ==
[2019-10-25 12:33] VITALS: BMI 44.4
== END | disposition home or self-care (01) ==
LOC: D.RT 08:59
PROVIDERS: ATTEND Internal Medicine Pulmonary Disease
DX: R06.09 Other forms of dyspnea (principal)

== ENCOUNTER → 2020-02-09 14:07 | Outpatient (CLI) | payer OTHER ==
[2019-10-25 12:33] VITALS: BMI 44.4
--- NOTE | ~2020-02-09 | EC ---
PATIENT:DANY REYNOLDS DATE OF SERVICE: 02/09/20 SEX: M MEDICAL RECORD: [id number] DATE OF : [birth year] LOCATION:[facility] AGE OF PATIENT: 44 ADMISSION DATE: 02/09/20 REFERRING PHYSICIAN: INTERPRETING PHYSICIAN: WILLIAN DOVE MD ECHOCARDIOGRAM REPORT ECHO CHARGES 4 ECHO COMPLETE Date: 02/09/20 CLINICAL DIAGNOSIS: PVC'S/ HEART MURMUR/ CHEST PAIN/DYSPNEA ECHOCARDIOGRAPHIC MEASUREMENTS (adult normal given) AC root (d.<3.7cm) 3.4 cm LV Septum d (<1.2 cm> 1.4 cm Valve Excursion 1.8 cm LV Septum (systole) 1.5 cm Left Atria (s.<4.0cm> 4.5 cm LVPW d(<1.2cm) 1.5 cm RV (d.<2.3cm) 3.3 cm LVPW (sytole) 1.6 cm LV diastole(<5.6CM) 6.9 cm MV E-F(>70mm/sec) cm LV systole 5.7 cm LVOT Diameter 1.8 cm MV exc.(>10mm) 1.4 cm Est.ejection fraction (50-75%) % DOPPLER: LVIT cm/sec A 67.0 cm/sec E 77.0 cm/sec LA cm/sec RVSP 22 mmHg LVOT 101 cm/sec AOP1/2T m/s Asc. Ao 119 cm/sec RVOT 81 cm/sec RA cm/sec PA 102 cm/sec AV Gradient Peak 5.63 mmHg AV Mean 3.33 mmHg AV Area 2.3 cm MV Gradient Peak 3.60 mmHg MV Mean 1.49 mmHg MV Area cm COMMENTS: Glazing Superintendent: 2 RYLAN MADSEN Ambulatory Care Coordinator: 3 Dr. Campos TAPE# PACS Pericardial Effusion N DATE OF SERVICE: Adequate 2D, color flow imaging, spectral Doppler, and M-mode. LVH is present. LV internal dimension is normal. Wall motion is normal. EF is greater than or equal to 55%. Aortic valve is tricuspid. No evidence of stenosis by Doppler interrogation. Left atrium is dilated at 4.5 cm. Mitral valve shows no prolapse. Mild MR. Right-sided chambers are grossly normal. Trace TR. ECHOCARDIOGRAM REPORT [id number] DANY REYNOLDS NTS:[id number] Voice Confirmation ID: [id number] DOCUMENT ID: [id number] WILLIAN DOVE MD CC: [id number] DICTATION DATE: 02/10/20 1448 PULMONARY DISEASE SPECIALIST: 02/10/20 185 DEP CLI 02/09/20 [place] [id number] [place] [id number]
== END | disposition home or self-care (01) ==
LOC: D.HCCECHO 14:07
PROVIDERS: ATTEND Internal Medicine Interventional Cardiology
DX: I49.3 Ventricular premature depolarization (principal)

== ENCOUNTER 2020-10-02 07:46 | Outpatient (CLI) | payer OTHER ==
[~2020-10-02] VITALS: Ht 167.6 cm; Wt 127.3 kg
--- NOTE | ~2020-10-02 | HEMODYNAMI ---
PATIENT:DANY REYNOLDS MEDICAL RECORD: [id number] : 79 LOCATION:[facility] ADMISSION DATE: 10/02/20 Generatedon:111:28 Patient name: DANY REYNOLDS Patient #: [id number] SSN: : 1975 Date of study: 10/02/2020 Page: Of Hemodynamic Procedure Report Patient Data Patient Demographics Procedure consent was obtained First Name: DANY Gender: Male Last Name: RODOLFO : 1975 Middle Initial: KHUSHBOO Age: 45 year(s) Patient #: [id number] Race: Unknown Additional ID: [id number] Contact details Address: [address] [place] [address] [facility] State: [place] City: [facility] Zip code: [address] Past Medical History Allergies: No known allergies Admission Admission Data Admission Date: 10/02/2020 Admission Time: 7:46 Arrival Date: 10/02/2020 Arrival Time: 0:00 Height (in.): 65.75 BSA: 2.3 (m2) Height (cm.): 167 BMI: 45.54 (kg/m2) Weight (lbs.): 279.99 Weight (kg.): 127 Lab Results Lab Result Date: 10/02/2020 Lab Result Time: 0:00 Biochemistry Name Units Result Min Max BUN mg/dl 17 --(---*)-- 7 18 Creatinine mg/dl 1 --(--*-)-- 0.6 1.3 eGFR ml/min 87 -*(----)-- 90 120 NONAFRICAN CBC Name Units Result Min Max Hematocrit % 39.7 -*(----)-- 42 54 Hemoglobin g/dl 12.8 -*(----)-- 13.5 17.5 Procedure Procedure Types Cath Procedure Diagnostic Procedure [facility] w/Coronaries Procedure Description Procedure Date Procedure Date: 10/02/2020 Procedure Start Time: 11:17 Procedure End Time: 11:26 Procedure Staff Name Function Wilder Dempsey MD Performing Physician Megan Martin RT Monitor Marisel Dangelo RT Scrub Evelyn Sharif RN Nurse Procedure Data Cath Procedure Fluoroscopy Diagnostic fluoroscopy Total fluoroscopy Time: 0.9 time: 0.9 min min Diagnostic fluoroscopy Total fluoroscopy dose: 632 dose: 632 mGy mGy Contrast Material Contrast Material Type Amount (ml) Isovue 300 58 Entry Location Entry Primary Successful Side Size Upsize Upsize Entry Closure Succes sful Closure Location (Fr) 1 (Fr) 2 (Fr) Remarks Device Remarks Femoral Right 5 Fr Exoseal artery Estimated blood loss: 5 ml Diagnostic catheters Device Type Used For End Catheter Placement MULTIPACK JL 4.0 5Fr Procedure catheter MULTIPACK 3DRC 5Fr Procedure catheter MULTIPACK Pigtail 5 Fr Procedure catheter Procedure Complications No complications Procedure Medications Medication Administration Route Dosage Oxygen etCO2 Nasal cannula 2 l/min Heparin Flush Bag added to field 2 bags (1000units/500ml NS) Lidocaine 2% added to field 20 0.9% NaCl I.V. 100 ml/hr Benadryl I.V. 50 mg Fentanyl I.V. 50 mcg Versed I.V. 1 mg Fentanyl I.V. 50 mcg Versed I.V. 1 mg Versed I.V. 0.5 mg Hemodynamics Rest BSA: 2.3 (m2) HGB: 12.8 (g/dl) O2 Consumption: Estimated: 297.75 (ml/min) O2 Con sumption indexed: Estimated:129.46 (ml/min/m) Heart Rate: 91 (bpm) Pressure Samples Time Site Value (mmHg) Purpose Heart Use Rate(bpm) 11:22 LV 107/30,28 Snapshot 90 11:22 LV 147/20,32 Snapshot 23 Gradients Valve Time Site Site Mean SEP/DFP Peak To Heart Use 1 2 (mmHg) (sec/min) Peak Rate (mmHg) (bpm) Aortic 11:23 LV AO 101 Snapshots Pre Cath Intra NCS Post Cath Vital Signs Time Heart Resp SPO2 etCO2 NIBP (mmHg) Rhythm Pain Sedation Rate (ipm) (%) (mmHg) Status Level (bpm) 11:10:25 92 29 96 0 135/86(103) NSR 0 (11) 10(A) , No pain 11:14:30 95 22 94 0 142/91(107) NSR 0 (11) 10(A) , No pain 11:18:36 99 17 81 0 145/92(114) NSR 0 (11) 9(A) , No pain 11:22:42 100 25 92 0 150/104(117) NSR 0 (11) 9(A) , No pain Medications Time Medication Route Dose Verified Delivered Reason Notes Effectiveness by by 11:10:03 Oxygen etCO2 2 l/min Evelyn Evelyn for low 02 Nasal Kole Sharif, sats cannula RN RN 11:10:13 Heparin Flush added 2 bags Evelyn Evelyn used for Bag to Kole Sharif, procedure (1000units/500ml field RN RN NS) 11:10:23 Lidocaine 2% added 20ml Evelyn Wilder for local to vial Kole Austin anesthetic field MILADYS JIMENEZ 11:10:34 0.9% NaCl I.V. 100ml/hr Evelyn Evelyn Per Kole Sharif, physician RN RN 11:10:50 Benadryl I.V. 50 mg Evelyn Evelyn Per Kole Sharif, physician RN RN 11:17:35 Fentanyl I.V. 50 mcg Evelyn Evelyn for Sharif, Sharif, sedation RN RN 11:17:42 Versed I.V. 1 mg Evelyn Evelyn for Sharif, Sharif, sedation RN RN 11:19:13 Fentanyl I.V. 50 mcg Evelyn Evelyn for Sharif, Sharif, sedation RN RN 11:19:17 Versed I.V. 1 mg Evelyn Evelyn for Sharif, Sharif, sedation RN RN 11:22:24 Versed I.V. 0.5 mg Evelyn Evelyn for Sharif, Sharif, sedation RN graduate teaching assistant Log Time Note 10:41:04 Informed consent obtained and on chart 10:44:45 Procedure Status Urgent Heart Cath (IP). 10:44:46 Time tracking: Regular hours (M-F 7:00 - 5:00) 10:44:49 Plan of Care:Hemodynamics will remain stable., Cardiac rhythm will remain stable., Comfort level will be maintained., Respiratory function will remain adequate., Patient/ family verbilizes understanding of procedure., Procedure tolerated without complication., Recovers from procedure without complications.. 10:49:50 H&P Date Dictated: 10/02/2020 ER History on chart.. 10:50:05 Patient allergic to No known allergies 10:51:35 Megan Martin RT(R) sent for patient. Start room use. 11:03:43 Patient received from ED to CCL 2 Alert and oriented. Tansferred to table in Supine position. 11:03:44 Warm blankets applied, and cami hugger turned on for patient comfort. 11:03:44 Correct patient and procedure confirmed by team. 11:03:45 ECG and BP/O2 sat monitors applied to patient. 11:03:46 Pre-procedure instructions explained to patient. 11:03:47 Pre-op teaching completed and patient verbalized understanding. 11:03:49 Family in waiting room. 11:03:52 Patient NPO since Midnight. 11:03:54 Is the patient allergic to Iodine/contrast media? No. 11:09:29 Vital chart was started 11:09:31 Baseline sample Acquired. 11:09:34 Rhythm: sinus rhythm 11:09:37 Patient diabetic? No. 11:09:38 Is patient on blood thinner?No 11:09:41 Previous problem with sedation/anesthesia? No ? 11:09:43 Snore? Yes 11:09:45 Sleep apnea? Yes 11:09:46 Deviated septum? No 11:09:46 Opens mouth fully? Yes 11:09:48 Sticks out tongue? Yes 11:10:03 Oxygen 2 l/min etCO2 Nasal cannula was administered by Evelyn Sharif RN; for low 02 sats; Verbal order read back and verified. 11:10:08 Airway obstruction? Yes ASTHMA. CHRONIC COUGH POST COVID YR. AGO 11:10:11 Dentures? No ? 11:10:13 Heparin Flush Bag (1000units/500ml NS) 2 bags added to field was administered by Evelyn Sharif RN; used for procedure; Verbal order read back and verified. 11:10:13 Pre procedure: right dorsailis pedis pulse 1+ Palpable, but thready & weak; easily obliterated 11:10:18 Patient pain scale 0/10 ?. 11:10:23 Lidocaine 2% 20ml vial added to field was administered by Wilder Dempsey MD; for local anesthetic; Verbal order read back and verified. 11:10:23 IV patent on arrival in left hand with 0.9% NaCl at KVO. 11:10:34 0.9% NaCl 100ml/hr I.V. was administered by Evelyn Sharif RN; Per physician; Verbal order read back and verified. 11:10:50 Benadryl 50 mg I.V. was administered by Evelyn Sharif RN; Per physician; Verbal order read back and verified. ::54 Lab Result : BUN 17 mg/dl :: Lab Result : Creatinine 1 mg/dl :: Lab Result : eGFR NONAFRICAN 87 ml/min ::54 Lab Result : Hemoglobin 12.8 g/dl ::54 Lab Result : Hematocrit 39.7 % 11::56 Lab results completed and on chart. 11:11:00 Right groin area was prepped with chlora-prep and draped in sterile fashion 11:11: Alarms reviewed by R. N. 11:11:01 Sharps counted by scrub and verified by R.N. 11:11:05 Use device set Femoral Dx 11:11:06 ACIST Syringe (46155) opened to sterile field. 11:11:06 Bag Decanter (2002S) opened to sterile field. 11:11:07 ACIST Hand Control (98039) opened to sterile field. 11:11:07 ACIST Manifold (77832) opened to sterile field. 11:11:08 Tegaderm 4 x 4 (1626W) opened to sterile field. 11:11:09 Medline Cath Pack ([id number]) opened to sterile field. 11:11:11 DIAGNOSTIC Multipack 5Fr catheter set (LZ2488) opened to sterile field. 11:11:14 SHEATH 5FR Reeds (QVC169) opened to sterile field. 11:11:15 EMERALD Guide Wire (752-115) opened to sterile field. 11:15:09 Patient Weight : 279.99 lbs 11:15:13 Patient Height : 65.75 inches 11:15:16 Arrival Date: 10/02/2020 12:00:00 AM 11:16:38 --------ALL STOP TIME OUT------ 11:16:38 Final Timeout: patient, procedure, and site verified with staff and physician. All members of the team are in agreement. 11:16:39 Right groin site verified by team. 11:16:42 Fire Safety Assessment: A--An alcohol-based skin anteseptic being used preoperatively., C--Open oxygen or nitrous oxide is being used., D--An ESU, laser, or fiber-optic light is being used. 11:16:45 Physical assessment completed. ASA score P 3 - A patient with severe systemic disease as per Wilder Dempsey MD. 11:16:48 2) 60-89 Mildly reduced kidney function, and other findings (as for stage 1) point to kidney disease. 11:16:51 Maximum allowable contrast dose (3.7 X eGFR X 0.75)241 ml. 11:16:53 Sedation plan: IV Moderate Sedation Medication:Versed, Fentanyl 11:17:16 Procedure started. 11:17:16 Full Disclosure recording started 11:17:23 Local anesthetic to right femoral artery with Lidocaine 2% by Wilder Dempsey MD.INITIAL ACCESS ONLY 11:17:35 Fentanyl 50 mcg I.V. was administered by Evelyn Sharif RN; for sedation; Verbal order read back and verified. 11:17:42 Versed 1 mg I.V. was administered by Evelyn Sharif RN; for sedation; Verbal order read back and verified. 11:18:54 A 5 Fr sheath was inserted into the Right Femoral artery 11:19:02 A MULTIPACK JL 4.0 5Fr catheter was advanced over the wire and used for Procedure. 11:19:13 Fentanyl 50 mcg I.V. was administered by Evelyn Sharif RN; for sedation; Verbal order read back and verified. 11:19:17 Versed 1 mg I.V. was administered by Evelyn Sharif RN; for sedation; Verbal order read back and verified. 11:20:28 LCA angiography performed. 11:20:39 Catheter removed. 11:20:43 A MULTIPACK 3DRC 5Fr catheter was advanced over the wire and used for Procedure. 11:21:37 RCA angiography performed. 11:21:38 Catheter removed. 11:21:41 ACCDominant side:Left 11:21:45 A MULTIPACK Pigtail 5 Fr catheter was advanced over the wire and used for Procedure. 11:22:24 Versed 0.5 mg I.V. was administered by Evelyn Sharif RN; for sedation; Verbal order read back and verified. 11:22:33 LV gram done using STERN 11::35 Injector settings: Ml/sec: 10, Volume: 20, 11::57 LV hemodynamics recorded. 11:23:47 EF : 20 % 11::57 EXOSEAL 5Fr (EX500) opened to sterile field. 11:23:59 Catheter removed. 11:24:10 Sheath removed intact; hemostasis achieved with Exoseal to the Right Femoral artery. 11:24:12 Procedure ended.(Physican Out) 11:24:19 Fluoroscopy time 00.90 minutes. 11:24:23 Flurop Dose total: 632 11:24:23 Fluoroscopy dose: 632 mGy 11::29 Dose Area Product 65392 mGy/cm. 11:24:32 Contrast amount:Isovue 300 58ml. 11::35 Maximum allowable dose exceeded? No. 11:24:36 Sharps counted by scrub and verified by R.N. 11:24:54 Post-op/insertion site Right Femoral artery dressed using a 4 x 4 and Tegaderm. 11:24:56 Post-procedure physical assessment completed. ASA score P 3 - A patient with severe systemic disease as per Wilder Dempsey MD. 11:25:00 Post procedure rhythm: sinus rhythm 11:25:03 Estimated blood loss: 5 ml 11:25:04 Post procedure instruction explained to patient.Patient verbalizes understanding. 11:25:04 Patient needs reinforcement of post procedure teaching. 11:25:48 Procedure and supply charges have been captured, reviewed, submitted and are correct. 11:25:50 Procedure Complication : No complications 11:25:52 Vital chart was stopped 11:25:[address] [facility] Findings: mild to moderate CAD (<70%) 11:25:55 Operative report dictated upon procedure completion. 11:25:55 See physician's report for complete and final results. 11:25:58 Patient transfered to Pre/Post Procedure Room with Bed. 11:25:59 Report given to Pre/Post Procedure Room. 11:26:01 Procedure ended. 11:26:01 Full Disclosure recording stopped 11:27:34 End room use (Document Last) 11:28:14 Procedure ended.(Physican Out) Device Usage Item Name Manufacture Quantity Catalog Hospital Part Current Minimal L ot# / Number Charge Number Stock Stock Serial# Code ACIST Acist 1 22199 369440 174594 524797 20 Syringe Medical (50818) Systems Inc Bag Microtek 1 819430 08909 772531 5 Decanter Medical Inc. () ACIST Hand Acist 1 36648 307447 528008 481531 5 Control Medical (62984) Systems Inc ACIST Acist 1 34152 861612 175737 593125 5 Manifold Medical (98598) Systems Inc Tegaderm 4 3M 1 1626W 728436 423770 738051 5 x 4 (1626W) Medline Medline 1 [id number] 949571 87174 888858 5 Cath Pack (NAFX12123) DIAGNOSTIC Cardinal 1 EI0759 181114 83256 810742 30 Multipack Health 5Fr catheter set (KT5814) SHEATH 5FR Terumo 1 QZE470 467261 590587 892475 5 Reeds (PGI157) EMERALD Cardinal 1 502-596 573125 026288 694082 5 Guide Wire Health (502-577) MULTIPACK Cardinal 1 414672 5 JL 4.0 5Fr Health catheter MULTIPACK Cardinal 1 318487 5 3DRC 5Fr Health catheter MULTIPACK Cardinal 1 123002 5 Pigtail 5 Health Fr catheter EXOSEAL 5Fr Cardinal 1 EX500 983063 197738 877497 10 (EX500) Health Signature Audit [place]ham Stage Time Signature Unsigned Intra-Procedure 10/02/2020 Megan Martin 11:27:49 AM RT(R) Intra-Procedure 10/02/2020 Evelyn Sharif, 11:28:14 AM RN Intra-Procedure 10/02/2020 Wilder Childs 11:28:31 AM Daniel JIMENEZ Signatures Performing Physician : Signature : Wilder Dempsey MD Date : Time : Monitor : Megan Martin Signature : RT Date : Time : Nurse : Evelyn Sharif, Signature : RN Date : Time : [address] [place] [address]
[2020-10-02 07:58] VITALS: BP 115/69
[2020-10-02] MEDS ORDERED: VENTOLIN HFA [SP8 GM (08:07)
[2020-10-02] MEDS ORDERED: ADVAIR 250-501 EAC1 (08:07)
[2020-10-02 08:34] LABS: CALC OSMOLALITY 275 mosm/kg (275-300); CALCIUM 8.9 mg/dL (8.5-10.1); CARBON DIOXIDE 22.3 mmol/L (21.0-32.0); CHLORIDE - SERUM 104 mmol/L (98-107); GLUCOSE 127 mg/dL (74-106); POTASSIUM - SERUM 3.6 mmol/L (3.5-5.1); SODIUM 136 mmol/L (136-145); UREA NITROGEN 17 mg/dL (7-18); eGFR NON AFRICAN AMERICAN 87 mL/min (90-120)
[2020-10-02 08:37] LABS: INR 1.08 (0.85-1.17); PROTIME 12.9 SECONDS (11.6-15.0)
[2020-10-02 08:38] LABS: APTT 27.6 SECONDS (22.8-39.4)
[2020-10-02 08:42] LABS: BASOPHILS 0.1 % (0-2); EOSINOPHILS 3.2 % (0-7); HEMATOCRIT 39.7 % (42.0-54.0); HEMOGLOBIN 12.8 g/dL (13.5-17.5); IMMATURE GRANULOCYTES 0.5 % (0-5); LYMPHOCYTE ABS# 1.37 10x3/uL (1.32-3.57); MCH 27.9 pg (26.0-34.0); MCHC 32.2 g/dL (31.0-37.0); MCV 86.7 fL (80.0-100.0); MEAN PLATELET VOLUME 9.3 fL (7.4-10.4); MONOCYTES 7.8 % (2-11); NEUTROPHIL ABS# 5.77 10x3/uL (1.78-5.38); NEUTROPHILS 71.4 % (40-80); PLATELET COUNT 223 10x3/uL (130-400); RBC 4.58 10x6/uL (4.20-6.10); RDW 15.2 % (11.5-14.5); WBC 8.1 10x3/uL (4.8-10.8)
[2020-10-02 08:53] LABS: ALBUMIN 3.2 g/dL (3.4-5.0); ALKALINE PHOSPHATASE 92 U/L (30-120); ALT (SGPT) 32 U/L (10-68); BILIRUBIN - TOTAL 0.31 mg/dL (0.2-1.3); CKMB 2.6 U/L (0.0-3.6); CREATINE KINASE 305 UL (21-232); PRO BNP 846 pg/mL (0-125)
[2020-10-02 08:59] LABS: TROPONIN-I 1.303 ng/mL (0.000-0.060)
[2020-10-02 10:54] VITALS: Ht 167.6 cm; Wt 127.3 kg
[2020-10-02 10:54] LABS: CHOL - HDL RATIO 3.5 ratio (2.3-4.9)
--- NOTE | 2020-10-02 11:37 | NUR ---
PT REC'D TO TAPE STRINGER RECOVERY ROOM 4 VIA STRETCHER. MONITORS ESTAB. SEE POST CATH VAT OPERATOR. ALARMS ON AND C/L IN REACH.
--- NOTE | 2020-10-02 11:40 | NUR ---
DR. DOVE IN TO SEE PT. UPDATE GIVEN AND QUESTIONS ANSWERED. INSTRUCTIONS ON NEW MEDICATIONS GIVEN. HE HAS UPDATED PTS ALSO, SHE IS IN WAITING ROOM AND WILL BE ALLOWED BACK WITH PT.
[2020-10-02] MEDS ORDERED: LASIX40 MG PO (11:43)
[2020-10-02] MEDS ORDERED: COREG6.25 MG (11:44)
[2020-10-02] MEDS ORDERED: ALDACTONE25 MG PO (11:44)
[2020-10-02] MEDS ORDERED: COREG6.25 MG PO (11:46)
--- NOTE | 2020-10-02 11:50 | NUR ---
R GROIN EXOSEAL SITE SOFT, NO S/S BLEEDING OR HEMATOMA. R LEG/FOOT WARM WITH PEDAL PULSES AND CAP REFILL WNL. VSS. AT BS. ALARMS ON AND C/L IN REACH.
--- NOTE | 2020-10-02 12:20 | NUR ---
R GROIN EXOSEAL SITE SOFT, NO S/S BLEEDING OR HEMATOMA. PULSES PALP. VSS. PT DENIES PAIN OR NEEDS. ALARMS ON AND C/L IN REACH.
--- NOTE | 2020-10-02 12:35 | NUR ---
R GROIN EXOSEAL SITE SOFT, NO S/S BLEEDING OR HEMATOMA. PULSES PALP. HOB GRADUALLY ELEVATED. SANDWICH TRAY AND COLA PROVIDED. AT BS. VSS. ALARMS ON AND C/L IN REACH.
--- NOTE | 2020-10-02 13:02 | NUR ---
DR. TURNER IN TO SEE PT.
--- NOTE | 2020-10-02 13:30 | NUR ---
VSS. R GROIN SITE C/D/I. PULSES PALP. PT TOLERATED DIET. PT TALKING ON PHONE, DENIES PAIN OR NEEDS. NEW ORDERS FOR D/C HOME. C/L IN REACH.
--- NOTE | 2020-10-02 13:48 | NUR ---
ALL DISCHARGE INSTRUCTIONS REVIEWED WITH PT AND , INCLUDING MEDS, RESTRICTIONS AND F/U APPT. PT EDUCATION PAMPHLETS ON NEW MEDS PROVIDED. PT AND VERBALIZE UNDERSTANDING.
--- NOTE | 2020-10-02 13:55 | NUR ---
R GROIN SITE SOFT, C/D/I. PIV D/C'D INTACT, DSG APPLIED. PT ALLOWED UP TO GET DRESSED AND GO TO BR INDEPENDENTLY.
--- NOTE | 2020-10-02 14:10 | NUR ---
PT DISCHARGED VIA WC TO PRIVATE VEHICLE WITH ALL PAPERWORK AND BELONGINGS.
--- NOTE | 2020-10-02 15:55 | HP ---
PATIENT: DANY REYNOLDS MEDICAL RECORD: [id number] ACCOUNT: [id number] LOCATION:[facility] : 79 ADMISSION DATE: 10/02/20 PCP: ISH TURNER MD HISTORY AND PHYSICAL EXAMINATION DATE OF ADMISSION: 10/02/2020 CHIEF COMPLAINT: Shortness of breath, cough, dyspnea on exertion. HISTORY OF PRESENT ILLNESS: This is a 45-year-old white male with a history of COVID-19 infection from October of 2019. He works at [employer]. 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 Symptoms got better. He came to the hospital today with those symptoms, not so bad today, had pain more on the left side of the chest. In the Emergency Department, his lab work was all good except his troponin was elevated at 1.303. Chest x-ray showed slight increased diffuse interstitial prominence compared to previous films. A CTA of the chest showed no PE and there was resolution of the viral pneumonia that he had last year. EKG was unremarkable. With his elevated troponin; however, cardiology was consulted. PAST MEDICAL HISTORY: Again COVID-19 in October of 2019, obesity, history of cardiac arrhythmia, dyspnea, heart murmur, he is being followed by pulmonology since his COVID infection for dyspnea. PAST SURGICAL HISTORY: Had hernia repair as an and a deviated septum. ALLERGIES: None. HOME MEDICATIONS: Advair 500/50 one inhalation twice a day. He has an albuterol HFA inhaler to use as rescue. He has taken Pepcid 20 mg twice a day. HABITS: Never smoked. No alcohol or drugs. SOCIAL HISTORY: He is and works at [employer]. FAMILY HISTORY: His father is alive. He has diabetes, hypertension and some sort of heart problem. Mother last year with pancreatic cancer. REVIEW OF SYSTEMS: GENERAL: No major weight changes. He is obese. HEENT: No particular sinus or allergy problems. RESPIRATORY: He is followed by pulmonary since his COVID infection. He was told he had "scarring" in his lungs. CARDIAC: He has been followed by cardiology since then with a history of arrhythmia and he had an echocardiogram, but I do not have that report with me now. GASTROINTESTINAL: No significant diarrhea, constipation, or heartburn. GENITOURINARY: He has had some kidney stones in the past. MUSCULOSKELETAL: No significant problems there. NEUROLOGIC: No migraines. No seizures. PSYCHIATRIC: Denies depression or melancholia. PHYSICAL EXAMINATION: VITAL SIGNS: Temperature 97.5, pulse 104, respirations 20, blood pressure HISTORY AND PHYSICAL [id number] DANY REYNOLDS 115/69, O2 sat 94%. GENERAL: He appears short of breath at times even though his room air O2 sats okay. SKIN: Warm and dry. HEENT: Grossly within normal limits. NECK: Supple. No JVD or bruit. HEART: Regular rate and rhythm without murmur. LUNGS: Fairly clear. ABDOMEN: Obese, soft, flat, nontender. EXTREMITIES: No pitting edema. NEUROLOGIC: Intact. LABORATORY DATA: Lipid profile shows total cholesterol of 162, LDL 90, HDL 46, triglycerides 134. CBC with a white count of 8100, hemoglobin 12.8, hematocrit 39.7. Basic metabolic panel: Sodium 136, potassium 3.6, chloride 104, CO2 of 22.3, BUN 17, creatinine 1.0, glucose 127, calcium 8.9. Liver functions were all normal. INR 1.08. CK 305, CK-MB 2.6. ProBNP 846, troponin elevated at 1.303. DIAGNOSTIC DATA: Chest x-ray with slight increased diffuse interstitial prominence compared to previous. A CTA of the chest showed no PE. There is resolution of viral pneumonia seen last year. EKG was unremarkable. ASSESSMENT: 1. Non-ST elevated myocardial infarction. 2. Obesity. 3. Shortness of breath. 4. History of COVID-19 in October of 2019. PLAN: Cardiology has seen the patient and he is going to the medical laboratory technologist. Other tests or procedures as warranted. TRANSINT:[id number] Voice Confirmation ID: [id number] DOCUMENT ID: [id number] ISH TURNER MD at 1555 CC: [id number] DICTATION DATE: 10/02/20 1319 [facility] APPRAISER: 10/02/20 1358 DEP CLI 10/02/20 [address] [place] [address]
--- NOTE | 2020-10-03 13:52 | OP ---
PATIENT NAME: DANY REYNOLDS MEDICAL RECORD: [id number] :79 LOCATION:[facility] ADMISSION DATE: SURGEON: WILLIAN DOVE MD DATE OF OPERATION: 10/02/2020 PROCEDURE: Left heart catheterization, selective coronary angiography, right femoral artery approach. CATHETERS: A 5-Scottish sheath, 5/4 left and right Gisel, 5/4 pig. The procedure was well tolerated and the patient was returned to the hughes. Sheath removed. ExoSeal device was placed. FINDINGS: Left ventriculography in 30-degree STERN view; global hypokinesis, reduced EF, estimated EF 20%. LVEDP is elevated at 30 mmHg. CORONARY ANATOMY: LEFT MAIN: Left main is free of disease. LAD: Free of disease in the diagonal system. CIRCUMFLEX: Free of disease in the marginal system. RIGHT CORONARY ARTERY: Dominant right artery, gives rise to PDA, free of disease. IMPRESSION AND PLAN: Nonischemic cardiomyopathy. We will start carvedilol, spironolactone as well as furosemide. If pressures tolerate, we will add an ARB versus Entresto as an outpatient. Maximize cardiomyopathic medications. We will need echocardiographic study in 3 months to assess need for device down the road. TRANSINT:[id number] Voice Confirmation ID: [id number] DOCUMENT ID: [id number] WILLIAN DOVE MD at 1352 CC: [id number] DICTATION DATE: 10/02/20 1133 WHOLESALE AND RETAIL MERCHANT: 10/02/20 1513 DEP CLI 10/02/20 [address] [place] [address]
== END 2020-10-02 14:10 | disposition home or self-care (01) ==
LOC: D.CATH 07:46 → D.ER 07:46 → D.CATH 14:10 → EDSTATUS 14:34
PROVIDERS: Family Medicine; ATTEND Internal Medicine Interventional Cardiology
DX: I21.4 Non-ST elevation (NSTEMI) myocardial infarction (principal); E66.9 Obesity, unspecified; J44.9 Chronic obstructive pulmonary disease, unspecified; Z86.16 Personal history of COVID-19; R06.02 Shortness of breath; I42.9 Cardiomyopathy, unspecified

== ENCOUNTER 2020-10-10 12:28 | Observation (INO) | payer OTHER ==
[~2020-10-10] VITALS: Ht 167.6 cm; Wt 129.3 kg
--- NOTE | ~2020-10-10 | CN ---
PATIENT NAME:DANY REYNOLDS MEDICAL RECORD: [id number] : 79 LOCATION:D. D.2117 ADMIT DATE: 10/10/20 ACCOUNT: [id number] CONSULTING PHYSICIAN: WILLIAN DOVE MD REFERRING PHYSICIAN: ISH TURNER MD DATE OF CONSULTATION: HISTORY OF PRESENT ILLNESS: A 45-year-old gentleman well known to me with a recent diagnosis of nonischemic cardiomyopathy via angiography. He was started on beta blockade, had aldosterone on admission, just recently picked up his medication. He presented to the ER with lightheadedness, dizziness, nonspecific chest pain. Coronary arteries were normal at the time of angiography, noted to have elevated cardiac enzymes consistent with underlying myopathic process. We are asked to see him concerning his cardiovascular status. PAST MEDICAL HISTORY: Includes history of, 1. Hypertension. 2. Cardiomyopathy, recent diagnosis. ALLERGIES: None known. MEDICATIONS: Typically include carvedilol 6.25 daily, Aldactone 25 daily, Lasix 40 daily, Advair Diskus 2 puffs b.i.d. SOCIAL HISTORY: Works at [employer]. Nonsmoker, nondrinker. He takes care of all his ADLs. REVIEW OF SYSTEMS: The patient reports easy bruising but reports no swollen glands. The patient reports no fever, no night sweats, no significant weight gain, no significant weight loss. No significant exercise tolerance. The patient reports no dry eyes, no irritation, no vision change. Patient reports no difficulty hearing and no ear pain. Patient reports no frequent nose bleeds or nose and sinus problems. Patient reports on arm pain on exertion. No shortness of breath while lying down. No history of heart murmur. Patient reports no cough, no wheezing or coughing up blood. Patient reports no abdominal pain, no vomiting. Normal appetite. No diarrhea and not vomiting blood. No nausea and no constipation. Patient reports no incontinence. No difficulty urinating. No hematuria. No increased frequency. Patient reports no muscle aches. No weakness, no arthralgias, no back pain. No swelling of the extremities. Patient reports no abnormal mole, no jaundice, no rashes. Reports no loss of consciousness. No weakness and no numbness. No seizures, dizziness, or headaches. The patient reports no depression, no sleep disturbance, feeling safe in a relationship and no alcohol abuse. Patient reports on fatigue. Reports no runny nose or sinus pressure. No itching, no hives, and no frequent sneezing. PHYSICAL EXAMINATION: GENERAL: No acute distress, appears stated age. VITAL SIGNS: 112/62, pulse 87 and regular. HEENT: Normocephalic, atraumatic. NECK: No JVD, no carotid bruit. CARDIOVASCULAR: Heart is regular. LUNGS: Good air excursion at this time. ABDOMEN: Soft and nontender. EXTREMITIES: Pulses 2+. No edema. CONSULT REPORT [id number] DAYN REYNOLDS IMPRESSION: Nonischemic cardiomyopathy. At this point in time, enzymes are flat on the le curve consistent with underlying myopathic process, no evidence of ongoing ischemia. At this point of time, pressures are a little marginal to add ARB and/or Entresto, hopefully we will be able to add these as an outpatient. Conversely, if pressure still be an issue, could add Farxiga as well. No contraindication to discharge from my standpoint. TRANSINT:[id number] Voice Confirmation ID: [id number] DOCUMENT ID: [id number] WILLIAN DOVE MD CC: [id number] DICTATION DATE: 10/11/20 1624 MATERIALS HANDLER: 10/11/202048 DIS IN 10/11/20 [facility] [address] [id number]
[~2020-10-10 12:28] MED LIST changes: +ADVAIR 250-501 EAC1; +ALDACTONE25 MG PO; +COREG6.25 MG; +COREG6.25 MG PO; +LASIX40 MG PO; +VENTOLIN HFA [SP8 GM
[2020-10-10 12:57] LABS: BASOPHILS 0.5 % (0-2); EOSINOPHILS 4.7 % (0-7); HEMATOCRIT 44.2 % (42.0-54.0); HEMOGLOBIN 14.8 g/dL (13.5-17.5); IMMATURE GRANULOCYTES 0.5 % (0-5); LYMPHOCYTE ABS# 1.17 10x3/uL (1.32-3.57); LYMPHOCYTES 17.7 % (15-50); MCH 28.4 pg (26.0-34.0); MCHC 33.5 g/dL (31.0-37.0); MCV 84.8 fL (80.0-100.0); MEAN PLATELET VOLUME 9.7 fL (7.4-10.4); MONOCYTES 14.5 % (2-11); NEUTROPHIL ABS# 4.11 10x3/uL (1.78-5.38); NEUTROPHILS 62.1 % (40-80); PLATELET COUNT 224 10x3/uL (130-400); RBC 5.21 10x6/uL (4.20-6.10); RDW 14.7 % (11.5-14.5); WBC 6.6 10x3/uL (4.8-10.8)
[2020-10-10 12:59] LABS: CALC OSMOLALITY 271 mosm/kg (275-300); CALCIUM 9.2 mg/dL (8.5-10.1); CARBON DIOXIDE 26.2 mmol/L (21.0-32.0); CHLORIDE - SERUM 100 mmol/L (98-107); CREATININE - SERUM 1.1 mg/dL (0.6-1.3); GLUCOSE 116 mg/dL (74-106); POTASSIUM - SERUM 3.9 mmol/L (3.5-5.1); SODIUM 135 mmol/L (136-145); UREA NITROGEN 15 mg/dL (7-18); eGFR NON AFRICAN AMERICAN 78 mL/min (90-120)
[2020-10-10 13:03] VITALS: BP 100/70
[2020-10-10 13:22] LABS: ALBUMIN 3.6 g/dL (3.4-5.0); ALKALINE PHOSPHATASE 111 U/L (30-120); ALT (SGPT) 34 U/L (10-68); BILIRUBIN - TOTAL 0.35 mg/dL (0.2-1.3); CKMB 1.1 U/L (0.0-3.6); CREATINE KINASE 150 UL (21-232); INR 1.02 (0.85-1.17); MAGNESIUM - SERUM 2.4 mg/dL (1.8-2.4); PROTEIN - SERUM 8.1 g/dL (6.4-8.2); PROTIME 12.4 SECONDS (11.6-15.0)
[2020-10-10 13:23] LABS: APTT 27.5 SECONDS (22.8-39.4)
[2020-10-10 13:26] LABS: TROPONIN-I 0.976 ng/mL (0.000-0.060)
[2020-10-10 21:17] VITALS: BP 113/63
[2020-10-10 22:16] VITALS: BP 120/90; BMI 46.1
--- NOTE | 2020-10-10 22:32 | NUR ---
RECIEVED REPORT FROM OFFGOING. ARRIVED TO FLOOR IN W/C AT 1913. ALERT AND ORIENTED X4. UP AD RADHA TO B/R. DENIES ANY PAIN OR NEEDS. ASSESSMENT COMPLETED.
[2020-10-11 01:46] VITALS: BP 109/69
--- NOTE | 2020-10-11 05:35 | NUR ---
ATE 100 % OF SANDWICH BOX THAT WAS GIVEN TO HIM LAST NIGHT. FSBS 61 AT THIS TIME. NPO PER PROTOCOL D/T CARDIO CONSULT. WILL GIVE HIM A SNACK AND REPORT TO [facility].
[2020-10-11 05:40] VITALS: BP 105/66
[2020-10-11 06:00] LABS: BASOPHILS 0.3 % (0-2); EOSINOPHILS 6.5 % (0-7); HEMATOCRIT 42.7 % (42.0-54.0); HEMOGLOBIN 13.9 g/dL (13.5-17.5); IMMATURE GRANULOCYTES 0.3 % (0-5); LYMPHOCYTE ABS# 1.22 10x3/uL (1.32-3.57); LYMPHOCYTES 21.3 % (15-50); MCHC 32.6 g/dL (31.0-37.0); MCV 85.9 fL (80.0-100.0); MEAN PLATELET VOLUME 9.7 fL (7.4-10.4); MONOCYTES 11.2 % (2-11); NEUTROPHIL ABS# 3.45 10x3/uL (1.78-5.38); NEUTROPHILS 60.4 % (40-80); PLATELET COUNT 204 10x3/uL (130-400); RBC 4.97 10x6/uL (4.20-6.10); RDW 15.1 % (11.5-14.5); WBC 5.7 10x3/uL (4.8-10.8)
[2020-10-11 06:44] LABS: ALBUMIN 3.1 g/dL (3.4-5.0); ANION GAP 10.4 mmol/L (8-16); BILIRUBIN - TOTAL 0.3 mg/dL (0.2-1.3); CALCIUM 8.8 mg/dL (8.5-10.1); CARBON DIOXIDE 27.3 mmol/L (21.0-32.0); CREATININE - SERUM 1.3 mg/dL (0.6-1.3); POTASSIUM - SERUM 3.7 mmol/L (3.5-5.1)
[2020-10-11 06:46] LABS: TROPONIN-I 0.869 ng/mL (0.000-0.060)
[2020-10-11 07:54] VITALS: BP 97/61
--- NOTE | 2020-10-11 08:13 | HP ---
PATIENT: PINKY REYNOLDS MEDICAL RECORD: [id number] ACCOUNT: [id number] LOCATION:[address] : 77 ADMISSION DATE: 10/10/20 PCP: ISH TURNER MD HISTORY AND PHYSICAL EXAMINATION CHIEF COMPLAINT: Chest tightness and shortness of breath. HISTORY OF PRESENT ILLNESS: This is a 45-year-old white male with a history of Covid 19 infection from October of 2019. He works at [employer]. He was working from home, today around noon when he had acute onset of chest tightness he felt like blood was rushing to his head and then rushed away from his head came back to his head and went back down into his chest. He felt like he was going to pass out and he called family and he was brought to the Emergency Department. Again, the patient was just admitted here on 10/02/2020 with shortness of breath, cough, dyspnea on exertion. He had an angiogram done on 10/02/2020 showing no significant heart disease. He had an ejection fraction of approximately 20% and was diagnosed with nonischemic cardiomyopathy and started on Lasix, spironolactone, and carvedilol. He has been doing fairly well until this acute onset of symptoms at approximately noon today and lab done in the Emergency Room show troponin elevated at 0.976. The rest of his labs looked okay. This was discussed with cardiology and they would like to see him before anything else is done, so he is admitted. PAST MEDICAL HISTORY: Again, Covid-19 in October 2019. He has morbid obesity, history of cardiac arrhythmia. He has been followed by pulmonology since his Covid infection for dyspnea. PAST SURGICAL HISTORY: Hernia repair as an infant and deviated septum and the angiogram done on 10/02/2020 that showed no significant blockages in the left main, the LAD and diagonal system and circumflex. The RCA was dominant and gives rise to PDA and was also free of disease as well. HOME MEDICATIONS: Advair 500/50 one inhalation twice a day, albuterol HFA inhaler to use p.r.n. shortness of breath or wheeze. Pepcid 20 mg twice a day. Lasix 40 mg once a day, spironolactone 25 mg once a day, and carvedilol 25 mg twice a day. HABITS: He never smoked. No alcohol or drugs. SOCIAL HISTORY: and works at [employer]. FAMILY HISTORY: Father is alive. He has diabetes, hypertension, and some sort of heart problem. Mother last year with pancreatic cancer. REVIEW OF SYSTEMS: GENERAL: No major weight changes. He is obese. HEENT: No significant sinus or allergy problems. RESPIRATORY: He has been followed by pulmonary since his Covid infection. He was told he had "scarring" in his lungs. CARDIAC: He has been followed by cardiology since his Covid infection. He has a history of arrhythmia. He had this recent angiogram just eight days ago, basically showing nonischemic cardiomyopathy with ejection fraction of approximately 20%. GASTROINTESTINAL: No significant diarrhea or constipation. He has some heartburn and takes Pepcid. HISTORY AND PHYSICAL [id number] PINKY REYNOLDS GENITOURINARY: He has had some kidney stones in the past. MUSCULOSKELETAL: No significant problems there. NEUROLOGIC: No migraines. No seizures. PSYCHIATRIC: No depression or melancholia. PHYSICAL EXAMINATION: VITAL SIGNS: Temperature 97.5, pulse 85, respirations 19, blood pressure 100/70, O2 sat 96%. GENERAL: He is awake and alert, in no acute distress. at bedside. SKIN: Warm and dry. HEENT: Grossly within normal limits. NECK: Supple. No JVD or bruit. HEART: Regular rate and rhythm without murmur. LUNGS: Clear to auscultation. ABDOMEN: Obese, soft, nontender. EXTREMITIES: No edema. NEUROLOGIC: Intact. LABORATORY DATA: CBC with a white count of 6600, hemoglobin 14.8, hematocrit 44.2, and INR 1.2. Sodium 135, potassium 3.9, chloride 100, CO2 of 26.2, BUN 15, creatinine 1.1, glucose 116, and calcium 9.2. Liver functions were all normal. Troponin elevated at 0.976; eight days ago, it was 1.3. Chest x-ray shows no acute process. ASSESSMENT: 1. Chest pain. 2. Nonischemic cardiomyopathy with recent angiogram on 10/02/2020. PLAN: We will get serial cardiac enzymes. Cardiology has been consulted. Other tests or procedures as warranted. TRANSINT:[id number] Voice Confirmation ID: [id number] DOCUMENT ID: [id number] ISH TURNER MD at [id number] CC: [id number] DICTATION DATE: 10/10/20 2337 WARP SPINNER: 10/10/20 2350 ADM IN [facility] [address] [id number]
[2020-10-11 11:32] VITALS: BP 101/62
[2020-10-11 14:48] VITALS: Ht 167.6 cm; Wt 129.3 kg
[2020-10-11 15:59] VITALS: BP 112/62
--- NOTE | 2020-10-11 17:14 | NUR ---
IV AND TELEMETRY DCD. DC PLANS GIVEN. UNDERSTANDING VOICED. ESCORTED TO CAR BY W/C.
== END 2020-10-11 17:15 | disposition home or self-care (01) ==
LOC: D.M2 → D.ER 12:28 → OBSVTIME 14:09 → D.M2 14:09 → D.ER 18:19 → D.M2 10-11 17:15
PROVIDERS: Family Medicine; ADMIT Family Medicine; ATTEND Family Medicine
DX: I42.8 Other cardiomyopathies (principal); Z68.42 Body mass index [BMI] 45.0-49.9, adult; I10 Essential (primary) hypertension; E66.01 Morbid (severe) obesity due to excess calories; Z86.16 Personal history of COVID-19

== ENCOUNTER → 2020-12-25 08:23 | Outpatient (CLI) | payer OTHER ==
[2020-10-11 14:48] VITALS: BMI 46.0
== END | disposition home or self-care (01) ==
LOC: D.HCCECHO 08:23
PROVIDERS: ATTEND Internal Medicine Interventional Cardiology
DX: I10 Essential (primary) hypertension (principal)